=== PATIENT | male | born 1975 | race Caucasian/White ===

== ENCOUNTER 2023-12-31 15:57 | Emergency (ER) | payer OTHER ==
[2023-12-31] MEDS: Ketorolac 30 MG/ML SDV IM ONE (16:30)
[2023-12-31] MEDS: Diazepam 5 MG Tab PO ONE (16:31)
[2023-12-31] MEDS: Lidocaine 4% 1 each Patch TOP ONE (16:34)
== END 2023-12-31 17:07 | disposition home or self-care (01) ==
LOC: MW.ED 15:57
DX: M54.42 Lumbago with sciatica, left side (principal); Z75.8 Other problems related to medical facilities and other health care; Z88.8 Allergy status to other drugs, medicaments and biological substances
CPT/HCPCS: 96372; 99283; A9270; J1885